=== PATIENT | female | born 1990 | race Caucasian/White ===

== ENCOUNTER 2024-11-19 16:27 | Emergency (ER) | payer MEDICAID, OTHER ==
[~2024-11-19] VITALS: Ht 172.7 cm; Wt 81.6 kg
[2024-11-19 16:39] VITALS: BP 141/85; TEMP 98.1
[2024-11-19] MEDS ORDERED: MAG HYDROX/AL HYDROX/SIMETH 30 ML UDC ONE (17:09)
[2024-11-19] MEDS ORDERED: LIDOCAINE VISCOUS 2% UD 15 ML UDC ONE (17:09)
[2024-11-19 17:14] VITALS: O2SAT 99
[2024-11-19] MEDS: LIDOCAINE VISCOUS 2% UD 15 ML UDC MM ONE (17:14)
[2024-11-19] MEDS: MAG HYDROX/AL HYDROX/SIMETH 30 ML UDC PO ONE (17:14)
== END 2024-11-19 17:16 | disposition home or self-care (01) ==
LOC: ER 16:31
DX: J02.9 Acute pharyngitis, unspecified (principal); R10.13 Epigastric pain; Z88.0 Allergy status to penicillin

== ENCOUNTER 2025-01-11 02:25 | Emergency (ER) | payer OTHER ==
[~2025-01-11] VITALS: Ht 172.7 cm; Wt 77.1 kg
[2025-01-11 02:45] VITALS: BP 118/86; TEMP 98.7; O2SAT 91
[2025-01-11] MEDS: ALBUTEROL FS 2.5 MG/3 ML VIAL.NEB NEB ONE (02:54)
== END 2025-01-11 03:04 | disposition left against medical advice (07) ==
LOC: ER 02:28
DX: J45.909 Unspecified asthma, uncomplicated (principal); Z88.0 Allergy status to penicillin

== ENCOUNTER 2025-03-27 19:42 | Emergency (ER) | payer OTHER | END 2025-03-27 20:42 | disposition left against medical advice (07) | LOC: ER 19:43 | DX: R10.9 Unspecified abdominal pain (principal); Z53.21 Procedure and treatment not carried out due to patient leaving prior to being seen by health care provider ==